=== PATIENT | male | born 1940 | race Caucasian/White ===

== ENCOUNTER 2020-05-09 15:36 | Emergency (ER) | payer MEDICARE, BC, SELFPAY ==
[2020-05-09] VITALS (7 sets, daily range): BP systolic 151–182; BP diastolic 80–131; PULSE 59–82; RESP 14–17; TEMP 36.6; O2SAT 95–99
[2020-05-09 17:25] LABS: Basophils % 0.2 %; Eosinophils % 0.2 %; Hematocrit 43.6 % (42.0-52.0); Hemoglobin 14.6 g/dL (11.7-16.6); Lymphocytes # 1.3 10^3/uL (0.8-4.8); Lymphocytes % 9.1 %; Mean Corpuscular HGB Conc 33.5 g/dL (30.0-36.0); Mean Corpuscular Hemoglobin 32.7 pg (28.0-34.0); Mean Corpuscular Volume 97.5 fL (80-94); Mean Platelet Volume 10.7 fL (7.4-10.4); Monocytes # 0.8 10^3/uL (0.2-0.9); Monocytes % 5.8 %; Nucleated Red Blood Cells % 0 %; Platelet Count 161 10^3/cmm (130-400); Red Blood Count 4.47 10^6/uL (4.1-5.3); Red Cell Distribution Width 12.9 % (12.1-15.1); White Blood Count 14.1 10^3/uL (4.0-10.0)
[2020-05-09 17:42] LABS: Alanine Aminotransferase 15 U/L (0-41); Albumin Level 4.2 g/dL (3.5-5.2); Alkaline Phosphatase 83 IU/L (40-130); Anion Gap 17.9 (5-19); Aspartate Amino Transferase 17 U/L (0-40); Blood Urea Nitrogen 24 mg/dL (8-23); Calcium 9.7 mg/dL (8.5-10.5); Carbon Dioxide 23 mmol/L (22-29); Chloride 106 mmol/L (98-107); Globulin 2.8 g/dL (1.3-4.6); Glucose 122 mg/dL (65-115); Lipase 16 U/L (13-60); Osmolality Calculated 301 mOsm/kg (285-295); Potassium 3.9 mmol/L (3.5-5.1); Sodium 143 mmol/L (136-145); Total Bilirubin 0.7 mg/dL (0.15-1.2)
--- NOTE | 2020-05-09 19:04 | ED_ITS ---
HPI - Abdominal Pain General: Chief Complaint: Abdominal Pain Stated Complaint: ABD PAIN, N/V Time Seen by Provider: 05/09/20 18:58 Source: patient Mode of arrival: ambulatory Limitations: no limitations History of Present Illness: HPI narrative: Paco is a 79-year-old male who states he has been having abdominal pain over the last 2 to 3 days. He states it feels like a bandlike sharp pain across his abdomen is worsened today. He states is a 7 out of 10. States he feels bloated as well. He has had some nausea but denies any vomiting or diarrhea or constipation. He denies any fevers. Denies any worsening or improving factors. MD elicited complaint: abdominal pain Pertinent past history: none Associated Symptoms: Denies chills, dysuria and fever(s) Review of Systems Const: Denies: fever(s), chills, body aches or change in appetite Eyes: Denies: blurry vision or eye discomfort ENMT: Denies: throat pain or dental pain Card: Denies: chest pain Resp: Denies: dyspnea GI: Reports: abdominal pain : Denies: dysuria Musc: Denies: neck pain or back pain Skin/Breast: Denies: rash Neuro: Denies: headache(s) Psych: Denies: depression Varinder/Lymph: Denies: easy bruising All/Imm: Denies: urticaria Physical Exam Const: COMMON NORMALS: no acute distress, patient oriented x3 and healthy appearing HENMT: COMMON NORMALS: normocephalic and atraumatic HEAD & SCALP: normocephalic and atraumatic Eye: COMMON NORMALS: Equal, round and reactive pupils present and EOMs intact bilaterally PUPIL: Yes Equal, round and reactive pupils present Neck/C-Spine: COMMON NORMALS: full ROM and supple Chest: COMMONS NORMALS: normal inspection of the chest and normal palpation of entire chest wall Resp: COMMON NORMALS: normal respiratory effort, No retractions, No use of accessory muscles and clear to auscultation bilaterally AUSCULTATION: clear to auscultation bilaterally Cardio: COMMON NORMALS: regular rate, regular rhythm and No murmurs present (Cardio) RATE: regular rate RHYTHM: regular rhythm GI: COMMON NORMALS: Normal to inspection, nondistended, normoactive bowel lester nds present, Soft to palpation and no masses PALPATION: Yes Soft to palpation OTHER: diffuse tenderness Extremity: COMMON NORMALS: normal to inspection and full ROM Neuro: COMMON NORMALS: patient oriented x3, moves all extremities and no focal motor deficits Psych: COMMON NORMALS: mental status grossly normal, Normal thought process present and cooperative THOUGHT PROCESS: Normal thought process present Skin: COMMON NORMALS: no rashes or lesions noted and no wounds GENERAL SKIN EXAM: no rashes or lesions noted Course Vital Signs: Vital signs: Vital Signs Temperature 97.8 F 05/09/20 22:22 Pulse Rate 82 05/09/20 22:22 Respiratory Rate 17 05/09/20 22:22 Blood Pressure 157/82 05/09/20 22:22 Pulse Oximetry 95 05/09/20 22:22 MDM - Abdominal Pain MDM Narrative: Medical decision making narrative: Patient presents here with abdominal pain. Patient's CT scan here shows no acute findings and blood work is normal. Exam at discharge is benign. He is stable for discharge and return if worsening. Lab Data: Labs: Lab Results 05/09/20 05/09/20 05/09/20 Range/Units 17:11 17:11 20:42 WBC 14.1 H (4.0-10.0) 10^3/ uL RBC 4.47 (4.1-5.3) 10^6/u L Hgb 14.6 (11.7-16.6) g/dL Hct 43.6 (42.0-52.0) % MCV 97.5 H (80-94) fL MCH 32.7 (28.0-34.0) pg MCHC 33.5 (30.0-36.0) g/dL RDW 12.9 (12.1-15.1) % Plt Count 161 (130-400) 10^3/c mm MPV 10.7 H (7.4-10.4) fL Neut % (Auto) 84.0 % Lymph % (Auto) 9.1 % Jennings % (Auto) 5.8 % Eos % (Auto) 0.2 % Baso % (Auto) 0.2 % Neut # (Auto) 11.80 H (1.8-7.7) 10^3/u L Lymph # (Auto) 1.3 (0.8-4.8) 10^3/u L Jennings # (Auto) 0.8 (0.2-0.9) 10^3/u L Eos # (Auto) 0.0 (0.0-0.8) 10^3/u L Baso # (Auto) 0.0 (0.0-0.1) 10^3/u L Nucleated RBC % (a uto) 0 % Nucleated RBCs # 0.0 /100WBC Sodium 143 (136-145) mmol/L Potassium 3.9 (3.5-5.1) mmol/L Chloride 106 (98-107) mmol/L Carbon Dioxide 23 (22-29) mmol/L Anion Gap 17.9 (5-19) BUN 24 H (8-23) mg/dL Creatinine 1.2 (0.7-1.2) mg/dL GFR Calculation Not Reportable Glucose 122 H (65-115) mg/dL Calculated Osmolal ity 301 H (285-295) mOsm/k g Calcium 9.7 (8.5-10.5) mg/dL Total Bilirubin 0.7 (0.15-1.2) mg/dL AST 17 (0-40) U/L ALT 15 (0-41) U/L Alkaline Phosphata se 83 (40-130) IU/L Total Protein 7.0 (6.6-8.7) g/dL Albumin 4.2 (3.5-5.2) g/dL Globulin 2.8 (1.3-4.6) g/dL Lipase 16 (13-60) U/L Urine Color Yellow (Yellow) Urine Appearance Clear (CLEAR) Urine pH 8 H (5-7) Ur Specific Gravit y 1.015 (1.005-1.030) Urine Protein Neg (Negative) Urine Glucose (UA) Norm (Normal) Urine Ketones Negative (Negative) Urine Blood Neg (Negative) Urine Nitrate Negative (Negative) Urine Bilirubin Neg (Negative) Prot Sulfosalicyli c Acd Negative (Negative) Urine Urobilinogen Norm (Negative) mg/dL Ur Leukocyte Odalis ase Negative (Negative) Imaging Data ^: CT Abd/Pel: Radiologist's impression: [address] [address] [address] Scan Report Signed Patient: Paco Sauceda Unit #: [id number] : 1940 Age/Sex: 79 / M ADM Date: 05/09/20 Loc: ER Room/Bed: Attending Dr: Ordering Provider/Ordering MD: Austin Villanueva MD Date of Service: 05/09/20 Procedure(s): CT abdomen pelvis w con* [id number] Accession Number(s): [id number] Report Number: [id number] PROCEDURE INFORMATION: Exam: CT Abdomen And Pelvis With Contrast Exam date and time: 05/09/2020 7:09 PM Age: 79 years old Clinical indication: Nausea and vomiting; Abdominal pain; Additional info: Abd pain TECHNIQUE: Imaging protocol: Computed tomography of the abdomen and pelvis with contrast. Total images: 246 Radiation optimization: All CT scans at this facility use at least one of these dose optimization techniques: automated exposure control; mA and/or kV adjustment per patient size (includes targeted exams where dose is matched to clinical indication); or iterative reconstruction. Contrast material: VISI 320; Contrast volume: 95 ml; Contrast route: INTRAVENOUS (IV); COMPARISON: CT Abdomen/Pelvis Renal [id number] 09/05/2014 1:39 PM RADIATION DOSE METRICS: Total DLP (mGy-cm): 1077.75 FINDINGS: Lungs: Limited assessment of the lung bases fails to reveal evidence for active cardiopulmonary process. Liver: Stable tiny simple hepatic cyst measuring under 5 mm medial segment left hepatic lobe. No visible hepatic mass. Gallbladder and bile ducts: Normal. No calcified stones. No ductal dilation. Pancreas: Unremarkable. No ductal dilation. Spleen: Rare calcified splenic granuloma. Small splenule. Spleen otherwise unremarkable. Adrenal glands: Adrenal glands unremarkable. Kidneys and ureters: Small simple cortical cysts and parapelvic renal cysts bilaterally stable since prior study. No follow-up recommended. No hydronephrosis or perinephric fluid. No visible nephrolithiasis or ureterolithiasis. Stomach and bowel: Assessment of the hollow viscus fails to reveal evidence of active or acute pathology. Nonobstructed bowel pattern. No visible acute diverticulitis. No visible adynamic or reactive ileus. Small hiatal hernia. Appendix: The appendix is not visualized. Intraperitoneal space: No visible evidence of mesenteric lymphadenitis or active mesenteritis/panniculitis. No visible pneumoperitoneum. No visible intraperitoneal ascites. Vasculature: Coronary artery disease. The abdominal aorta is nonaneurysmal. Mild arterial sclerotic disease. Lymph nodes: No current visible evidence of active mesenteric or retroperitoneal lymphadenopathy. Urinary bladder: Unremarkable as visualized. Reproductive: Prostate hypertrophy. Bones/joints: No visible active or acute osseous pathology. 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 No visible spondylolysis. No visible osteolytic or osteoblastic destructive process. Soft tissues: Obesity. CT/CT abdomen pelvis w con* [id number] IMPRESSION: Currently no visible evidence for acute abdominal or pelvic pathologic process. Discharge Plan Discharge Patient Disposition: Home Clinical Impression: Abdominal pain Qualifiers: Abdominal location: generalized Qualified Code(s): R10.84 - Generalized abdominal pain Condition: Stable Prescriptions: New dicyclomine 20 mg tablet 20 mg PO TID PRN (Reason: abdominal pain) Qty: 20 RF: 0 No Action Multi-Vitamin Tablet 1 tab PO DAILY@1000 RF: 0 lisinopril 20 mg tablet 20 mg PO DAILY@1000 RF: 0 Aspir-81 81 mg Tablet,Delayed Release (Dr/Ec) 81 mg PO DAILY@1000 RF: 0 simvastatin 20 mg tablet 20 mg PO DAILY@1000 RF: 0 Discharge Orders: Discharge ED (Routine); Ordered 05/09/20 Ordered By: Austin Villanueva Referrals: Elmer Lawson DO [Primary Care Provider] - 1-3 days Discharge Diet: Advance as tolerated Discharge Activity: Resume usual activity Patient Instructions: Abdominal Pain (ED) Coding Level of Care Code ED Windshield Installer for Chg Fwd Exam Comprehensive
--- NOTE | 2020-05-09 19:25 | PC.PHAR ---
PT STATES HE DOESN'T KNOW IF HE TOOK HIS MEDICATION TODAY, BUT HE DID TAKE IT YESTERDAY.
[2020-05-09] MEDS: ondansetron 2 mg/ML SDV 2 mL 4 MG IVP (19:42)
[2020-05-09] MEDS: morphine 4 mg/mL SDV 1 mL IVP ×2 (19:42→22:17)
[2020-05-09] MEDS: iodixanol 320 mg/mL 100mL Btl IV (19:44)
[2020-05-09 20:57] LABS: Add Urine Microscopic? NO
[2020-05-09 21:26] LABS: Urine Appearance Clear (CLEAR); Urine Color Yellow (Yellow)
[2020-05-09 21:27] LABS: Bilirubin Urine Neg (Negative); Blood Urine Neg (Negative); Glucose Urine UA Norm (Normal); Ketones Urine Negative (Negative); Leukocyte Esterase Urine Negative (Negative); Nitrate Urine Negative (Negative); Protein Urine Neg (Negative); Specific Gravity, Urine 1.015 (1.005-1.030); Sulfosalicylic Acid Urine Negative (Negative); Urobilinogen Urine Norm (Negative); pH Urine 8 (5-7)
== END 2020-05-09 22:22 | disposition home or self-care (01) ==
PROVIDERS: Family Medicine; Emergency Provider Emergency Medicine; PCP Electrodiagnostic Medicine
DX: R10.84 Generalized abdominal pain (principal); Z79.82 Long term (current) use of aspirin
CPT/HCPCS: 12345; 36415; 74177; 80053; 81003; 83690; 85025; 96374; 96375; 96376; 99283; J2270; J2405; Q9967

== ENCOUNTER 2020-05-11 13:31 | Inpatient (IN) | payer MEDICARE, BC, SELFPAY ==
[2020-05-11] VITALS (9 sets, daily range): BP systolic 98–155; BP diastolic 46–92; PULSE 62–93; RESP 14–18; TEMP 36.8–36.9; O2SAT 96–100; BMI 30.5
--- NOTE | 2020-05-11 13:50 | W.ED.ABDPA2 ---
Documented by User: DIONE Bernal 05/12/20 07:09 HPI - Abdominal Pain General: Chief Complaint: Abdominal Pain Stated Complaint: NAUSEA/ VOMITING Time Seen by Provider: 05/11/20 13:45 History of Present Illness: HPI narrative: Patient is an 80-year-old male comes to the ED with abdominal pain, nausea and vomiting. Patient was seen here in the ED on Friday, May 09 for same complaint. On May 09 of the labs and CT of the abdomen were all normal showed no acute findings. Since discharged he still having abdominal pain that is located in the left lower quadrant. He rates the pain a 6 out of 10. He had an episode of emesis yesterday and feels nauseous today. Patient says he has not had anything to eat since Friday. He also states he has not had a bowel movement since Friday. Denies any fever, chills, chest pain, shortness of breath or bladder symptoms. Associated Symptoms: Reports nausea; Denies chills, constipation, diarrhea, dysuria, fever(s), hematochezia, hematuria and vomiting Review of Systems Const: Reports: change in appetite (decreased); Denies: fever(s), chills or fatigue Eyes: Denies: change in vision or eye discomfort ENMT: Denies: throat pain, odynophagia, nasal discharge or nasal congestion Card: Denies: chest pain, palpitations, edema, swelling of feet/ankles, dyspnea on exertion or orthopnea Resp: Denies: dyspnea, productive cough or non-productive cough GI: Reports: abdominal pain and nausea; Denies: vomiting, diarrhea, constipation or hematochezia : Denies: flank pain, difficulty urinating, dysuria or hematuria Musc: Denies: neck pain, back pain or extremity swelling Skin/Breast: Denies: rash or new lesions Neuro: Denies: headache(s), numbness in extremities or weakness in extremities Physical Exam Const: COMMON NORMALS: no acute distress, patient oriented x3 and alert GENERAL APPEARANCE: cooperative, comfortable and lethargic (Patient appears very sleepy) ORIENTATION/CONSCIOUSNESS: Yes lethargic (Patient appears very sleepy) HENMT: COMMON NORMALS: normocephalic HEAD & SCALP: normocephalic MOUTH: Normal oral and palatal mucosa present THROAT: posterior oropharynx normal and uvula midline Eye: COMMON NORMALS: Equal, round and reactive pupils present PUPIL: Yes Equal, round and reactive pupils present Neck/C-Spine: COMMON NORMALS: supple GENERAL: Yes normal visual inspection Resp: COMMON NORMALS: normal respiratory effort, No retractions, No use of accessory muscles and clear to auscultation bilaterally AUSCULTATION: clear to auscultation bilaterally Cardio: COMMON NORMALS: regular rate, regular rhythm, S1 normal heart sound present, S2 normal heart sound present, No gallops present (Cardio), No clicks present (Cardio), No murmurs present (Cardio) and Peripheral pulses 2+ throughout RATE: regular rate RHYTHM: regular rhythm HEART SOUNDS: S1 normal heart sound present and S2 normal heart sound present PERIPHERAL PULSES: Peripheral pulses 2+ throughout GI: COMMON NORMALS: Normal to inspection, nondistended, normoactive bowel sounds present, Soft to palpation and no masses PALPATION: Yes Soft to palpation and Yes Tenderness to palpation present (GI) (mild bilateral lower abdominal tenderness) Details: LLQ and RLQ : COMMON NORMALS: Yes no CVA tenderness BLADDER/KIDNEY EXAM: Yes no CVA tenderness Back/Pelvis: COMMON NORMALS: no CVA tenderness Extremity: COMMON NORMALS: normal to inspection and no pedal edema Neuro: COMMON NORMALS: patient oriented x3 SENSORIUM/ORIENTATION: Yes alert and Yes lethargic (Patient appears very sleepy) GAIT: Yes Normal gait present Skin: GENERAL SKIN EXAM: dry skin Course Vital Signs: Vital signs: Vital Signs Temperature 99.9 F H 05/12/20 04:00 Pulse Rate 73 05/12/20 04:00 Respiratory Rate 15 05/12/20 04:00 Blood Pressure 98/58 05/12/20 04:00 Pulse Oximetry 94 05/12/20 04:00 MDM - Abdominal Pain Lab Data: Attestation: I reviewed the patient's lab results. Labs: Lab Results 05/11/20 05/11/20 05/11/20 Range/Units 14:04 14:04 14:04 WBC 22.0 H (4.0-10.0) 10^3/ uL RBC 4.54 (4.1-5.3) 10^6/u L Hgb 14.6 (11.7-16.6) g/dL Hct 44.5 (42.0-52.0) % MCV 98.0 H (80-94) fL MCH 32.2 (28.0-34.0) pg MCHC 32.8 (30.0-36.0) g/dL RDW 13.0 (12.1-15.1) % Plt Count 130 (130-400) 10^3/c mm MPV 10.9 H (7.4-10.4) fL Neut % (Auto) 87.1 % Lymph % (Auto) 5.9 % [place] % (Auto) 6.1 % Eos % (Auto) 0.0 % Baso % (Auto) 0.1 % Neut # (Auto) 19.13 H (1.8-7.7) 10^3/u L Lymph # (Auto) 1.3 (0.8-4.8) 10^3/u L [place] # (Auto) 1.3 H (0.2-0.9) 10^3/u L Eos # (Auto) 0.0 (0.0-0.8) 10^3/u L Baso # (Auto) 0.0 (0.0-0.1) 10^3/u L Nucleated RBC % (a uto) 0 % Nucleated RBCs # 0.0 /100WBC Sodium 134 L (136-145) mmol/L Potassium 4.6 (3.5-5.1) mmol/L Chloride 97 L (98-107) mmol/L Carbon Dioxide 25 (22-29) mmol/L Anion Gap 16.6 (5-19) BUN 23 (8-23) mg/dL Creatinine 1.5 H (0.7-1.2) mg/dL GFR Calculation Not Reportable Glucose 102 (65-115) mg/dL Calculated Osmolal ity 282 L (285-295) mOsm/k g Lactic Acid 1.6 (0.5-2.2) mmol/L Calcium 9.7 (8.5-10.5) mg/dL Total Bilirubin 2.1 H (0.15-1.2) mg/dL AST 18 (0-40) U/L ALT 16 (0-41) U/L Alkaline Phosphata se 72 (40-130) IU/L Total Protein 6.9 (6.6-8.7) g/dL Albumin 3.8 (3.5-5.2) g/dL Globulin 3.1 (1.3-4.6) g/dL Lipase 9 L (13-60) U/L Urine Color (Yellow) Urine Appearance (CLEAR) Urine pH (5-7) Ur Specific Gravit y (1.005-1.030) Urine Protein (Negative) Urine Glucose (UA) (Normal) Urine Ketones (Negative) Urine Blood (Negative) Urine Nitrate (Negative) Urine Bilirubin (Negative) Urine Urobilinogen (Negative) mg/dL Ur Leukocyte Odalis ase (Negative) Urine RBC (0-2) /hpf Urine WBC (0-5) /hpf Ur Squamous Epith Cells (0-5) /hpf Amorphous Sediment Urine Bacteria (NONE) /hpf Hyaline Casts /lpf Urine Mucus /hpf 05/11/20 Range/Units 15:00 WBC (4.0-10.0) 10^3/ uL RBC (4.1-5.3) 10^6/u L Hgb (11.7-16.6) g/dL Hct (42.0-52.0) % MCV (80-94) fL MCH (28.0-34.0) pg MCHC (30.0-36.0) g/dL RDW (12.1-15.1) % Plt Count (130-400) 10^3/c mm MPV (7.4-10.4) fL Neut % (Auto) % Lymph % (Auto) % [place] % (Auto) % Eos % (Auto) % Baso % (Auto) % Neut # (Auto) (1.8-7.7) 10^3/u L Lymph # (Auto) (0.8-4.8) 10^3/u L [place] # (Auto) (0.2-0.9) 10^3/u L Eos # (Auto) (0.0-0.8) 10^3/u L Baso # (Auto) (0.0-0.1) 10^3/u L Nucleated RBC % (a uto) % Nucleated RBCs # /100WBC Sodium (136-145) mmol/L Potassium (3.5-5.1) mmol/L Chloride (98-107) mmol/L Carbon Dioxide (22-29) mmol/L Anion Gap (5-19) BUN (8-23) mg/dL Creatinine (0.7-1.2) mg/dL GFR Calculation Glucose (65-115) mg/dL Calculated Osmolal ity (285-295) mOsm/k g Lactic Acid (0.5-2.2) mmol/L Calcium (8.5-10.5) mg/dL Total Bilirubin (0.15-1.2) mg/dL AST (0-40) U/L ALT (0-41) U/L Alkaline Phosphata se (40-130) IU/L Total Protein (6.6-8.7) g/dL Albumin (3.5-5.2) g/dL Globulin (1.3-4.6) g/dL Lipase (13-60) U/L Urine Color Yellow (Yellow) Urine Appearance Clear (CLEAR) Urine pH 6 (5-7) Ur Specific Gravit y 1.015 (1.005-1.030) Urine Protein 1+ H (Negative) Urine Glucose (UA) Norm (Normal) Urine Ketones Negative (Negative) Urine Blood Neg (Negative) Urine Nitrate Negative (Negative) Urine Bilirubin 1+ H (Negative) Urine Urobilinogen 8 H (Negative) mg/dL Ur Leukocyte Odalis ase Negative (Negative) Urine RBC 0-4 H (0-2) /hpf Urine WBC 0-4 H (0-5) /hpf Ur Squamous Epith Cells 0-4 H (0-5) /hpf Amorphous Sediment Not Reportable Urine Bacteria Trace (NONE) /hpf Hyaline Casts 0-4 H /lpf Urine Mucus Trace /hpf Imaging Data ^: KUB: Attestation: I personally reviewed and interpreted this imaging study as follows: Radiologist's impression: [address] [address] XRay Report Signed Patient: Paco Sauceda Unit #: [id number] : 1940 Age/Sex: 80 / M ADM Date: 05/11/20 Loc: ER Room/Bed: Attending Dr: Ordering Provider/Ordering MD: Nestor Farmer Date of Service: 05/11/20 Procedure(s): XR KUB portable 14499 Accession Number(s): [id number] Report Number: [id number] WS: [id number] KUB, portable supine KUB, 05/11/2020 Clinical Data: abdominal pain Comparison: None. Findings: No abnormal intraabdominal masses or calcifications are seen. There is no dilatated small bowel or evidence of obstruction. There is air in the small bowel and the colon. There is a large amount of fecal material throughout the colon. XR/XR KUB portable [id number] Impression: Generalized ileus. Dictated By: Janelle Hurt MD Signed By: Janelle Hurt MD Signed Date/Time: 05/11/201441 DD/ 144 Discharge Plan Discharge Patient Disposition: Admitted As Inpatient Admit Provider: Donny Vogel Clinical Impression: Acalculous cholecystitis Condition: Stable Sign Out Sign Out Data: Patient Sign Out occurred on 05/11/20 at 17:06. Patient's care was discussed, and care was transferred from DIONE Bernal to Charles Gonzalez MD, [facility] [place]. Sign Out Comment: US gallbladder pending. WBC 22, t quan 2.4 and Cr 1.5. Pt's pain and nausea is controlled. JRP Last updated by Nestor Farmer PA at 05/11/20 17:02 Coding Level of Care Code ED Cyber Threat Analyst for Chg Fwd Exam Comprehensive Documented by User: Charles Gonzalez MD, [facility] [place] 05/11/20 21:14 HPI - Abdominal Pain General: Chief Complaint: Abdominal Pain Stated Complaint: NAUSEA/ VOMITING Time Seen by Provider: 05/11/20 13:45 Course Vital Signs: Vital signs: Vital Signs Temperature 99.9 F H 05/12/20 04:00 Pulse Rate 73 05/12/20 04:00 Respiratory Rate 15 05/12/20 04:00 Blood Pressure 98/58 05/12/20 04:00 Pulse Oximetry 94 05/12/20 04:00 MDM - Abdominal Pain MDM Narrative: Medical decision making narrative: Kindly evaluate the midlevel providers note for a complete history and physical examination. I also evaluated this patient and agree with his findings. Essentially this is an 80-year-old male and this is a second visit to the emergency department for the same thing in the last 3 days. He was seen for abdominal pain 2 days ago and discharged home, however his pain has been gradually worsening with associated vomiting. Pain is worse on eating and he is unable to keep anything down. On evaluation in the emergency department he has a significant change in his white cell count that went up from about 14,000-22,000 in 2 days. He also has elevated bilirubin and CT scan as well as gallbladder ultrasound are suggestive of acalculus cholecystitis. Common bile duct not dilated and no stones seen. He is admitted under the service of Dr. Vogel, surgeon for cholecystectomy in the morning. I spoke with the surgeon and discussed with the patient. The patient voiced understanding and is in agreement with the plan. Medical Records: Attestation: I reviewed the patient's medical records. Lab Data: Attestation: I reviewed the patient's lab results. Labs: Lab Results 05/11/20 05/11/20 05/11/20 Range/Units 14:04 14:04 14:04 WBC 22.0 H (4.0-10.0) 10^3/ uL RBC 4.54 (4.1-5.3) 10^6/u L Hgb 14.6 (11.7-16.6) g/dL Hct 44.5 (42.0-52.0) % MCV 98.0 H (80-94) fL MCH 32.2 (28.0-34.0) pg MCHC 32.8 (30.0-36.0) g/dL RDW 13.0 (12.1-15.1) % Plt Count 130 (130-400) 10^3/c mm MPV 10.9 H (7.4-10.4) fL Neut % (Auto) 87.1 % Lymph % (Auto) 5.9 % [place] % (Auto) 6.1 % Eos % (Auto) 0.0 % Baso % (Auto) 0.1 % Neut # (Auto) 19.13 H (1.8-7.7) 10^3/u L Lymph # (Auto) 1.3 (0.8-4.8) 10^3/u L [place] # (Auto) 1.3 H (0.2-0.9) 10^3/u L Eos # (Auto) 0.0 (0.0-0.8) 10^3/u L Baso # (Auto) 0.0 (0.0-0.1) 10^3/u L Nucleated RBC % (a uto) 0 % Nucleated RBCs # 0.0 /100WBC Sodium 134 L (136-145) mmol/L Potassium 4.6 (3.5-5.1) mmol/L Chloride 97 L (98-107) mmol/L Carbon Dioxide 25 (22-29) mmol/L Anion Gap 16.6 (5-19) BUN 23 (8-23) mg/dL Creatinine 1.5 H (0.7-1.2) mg/dL GFR Calculation Not Reportable Glucose 102 (65-115) mg/dL Calculated Osmolal ity 282 L (285-295) mOsm/k g Lactic Acid 1.6 (0.5-2.2) mmol/L Calcium 9.7 (8.5-10.5) mg/dL Total Bilirubin 2.1 H (0.15-1.2) mg/dL AST 18 (0-40) U/L ALT 16 (0-41) U/L Alkaline Phosphata se 72 (40-130) IU/L Total Protein 6.9 (6.6-8.7) g/dL Albumin 3.8 (3.5-5.2) g/dL Globulin 3.1 (1.3-4.6) g/dL Lipase 9 L (13-60) U/L Urine Color (Yellow) Urine Appearance (CLEAR) Urine pH (5-7) Ur Specific Gravit y (1.005-1.030) Urine Protein (Negative) Urine Glucose (UA) (Normal) Urine Ketones (Negative) Urine Blood (Negative) Urine Nitrate (Negative) Urine Bilirubin (Negative) Urine Urobilinogen (Negative) mg/dL Ur Leukocyte Odalis ase (Negative) Urine RBC (0-2) /hpf Urine WBC (0-5) /hpf Ur Squamous Epith Cells (0-5) /hpf Amorphous Sediment Urine Bacteria (NONE) /hpf Hyaline Casts /lpf Urine Mucus /hpf 05/11/20 Range/Units 15:00 WBC (4.0-10.0) 10^3/ uL RBC (4.1-5.3) 10^6/u L Hgb (11.7-16.6) g/dL Hct (42.0-52.0) % MCV (80-94) fL MCH (28.0-34.0) pg MCHC (30.0-36.0) g/dL RDW (12.1-15.1) % Plt Count (130-400) 10^3/c mm MPV (7.4-10.4) fL Neut % (Auto) % Lymph % (Auto) % [place] % (Auto) % Eos % (Auto) % Baso % (Auto) % Neut # (Auto) (1.8-7.7) 10^3/u L Lymph # (Auto) (0.8-4.8) 10^3/u L [place] # (Auto) (0.2-0.9) 10^3/u L Eos # (Auto) (0.0-0.8) 10^3/u L Baso # (Auto) (0.0-0.1) 10^3/u L Nucleated RBC % (a uto) % Nucleated RBCs # /100WBC Sodium (136-145) mmol/L Potassium (3.5-5.1) mmol/L Chloride (98-107) mmol/L Carbon Dioxide (22-29) mmol/L Anion Gap (5-19) BUN (8-23) mg/dL Creatinine (0.7-1.2) mg/dL GFR Calculation Glucose (65-115) mg/dL Calculated Osmolal ity (285-295) mOsm/k g Lactic Acid (0.5-2.2) mmol/L Calcium (8.5-10.5) mg/dL Total Bilirubin (0.15-1.2) mg/dL AST (0-40) U/L ALT (0-41) U/L Alkaline Phosphata se (40-130) IU/L Total Protein (6.6-8.7) g/dL Albumin (3.5-5.2) g/dL Globulin (1.3-4.6) g/dL Lipase (13-60) U/L Urine Color Yellow (Yellow) Urine Appearance Clear (CLEAR) Urine pH 6 (5-7) Ur Specific Gravit y 1.015 (1.005-1.030) Urine Protein 1+ H (Negative) Urine Glucose (UA) Norm (Normal) Urine Ketones Negative (Negative) Urine Blood Neg (Negative) Urine Nitrate Negative (Negative) Urine Bilirubin 1+ H (Negative) Urine Urobilinogen 8 H (Negative) mg/dL Ur Leukocyte Odalis ase Negative (Negative) Urine RBC 0-4 H (0-2) /hpf Urine WBC 0-4 H (0-5) /hpf Ur Squamous Epith Cells 0-4 H (0-5) /hpf Amorphous Sediment Not Reportable Urine Bacteria Trace (NONE) /hpf Hyaline Casts 0-4 H /lpf Urine Mucus Trace /hpf Imaging Data ^: CT Abd/Pel: Attestation: I personally reviewed and interpreted this imaging study as follows: Radiologist's impression: [place] [address] CT Scan Report Signed Patient: Paco Sauceda #: [id number] : 1940cct#:[id number] Age/Sex: 80 / MADM Date: 05/11/20 Loc: ERRoom/Bed: Attending Dr: Ordering Provider/Ordering MD: Nestor Farmer Date of Service: 05/11/20 Procedure(s): CT abdomen pelvis w con* [id number] Accession Number(s): [id number] Report Number: [id number] WS: [id number] CT ABDOMEN AND PELVIS WITH CONTRAST HISTORY: abdominal pain, n/v TECHNIQUE: Imaging performed of the abdomen and pelvis with IV contrast. Single phase imaging of the abdomen. Coronal and sagittal reformats are submitted. All CT scans at [facility] use at least one of these dose optimization techniques: automated exposure control; mA and/or kV adjustment per patient size (includes targeted exams where dose is matched to clinical indication); or iterative reconstruction. IV CONTRAST: Omnipaque 300; 95 mL IV. Oral contrast: No DLP: 970.61 mGy.cm COMPARISON: 05/09/2020 Lower thorax: Chronic interstitial fibrotic changes at the lung bases. Area of pleural thickening and atelectasis at the RIGHT lung base. Heart is normal size. No hiatal hernia. Liver/biliary system: Normal size liver. 2 small to characterize hypodensity in the RIGHT lobe. No bile duct dilatation. Gallbladder: Gallbladder is mildly hydropic. There is a small amount of inflammation adjacent to the gallbladder which was not present on the prior study. The inflammation extends to involve the duodenal C-loop and also inferiorly towards the hepatic flexure. No stones are identified. Pancreas: Normal. Spleen: Normal spleen with granulomata. Adrenal glands: Normal. Right kidney: Normal size kidney with a few hypodensities which are too small to characterize. No renal obstruction. No solid mass. Left kidney: Mild perinephric stranding. Extrarenal pelvis with no hydronephrosis. LEFT ureter is normal size. Aorta: Mild atherosclerosis with no aneurysm. Lymphadenopathy: None. Free fluid: None. GI tract: No GI tract obstruction. There is significant fecal retention in the RIGHT colon. The appendix is not visualized. Abdominal wall: Unremarkable abdominal wall. No hernia. Pelvis: Normal. 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 CT/CT abdomen pelvis w con* [id number] IMPRESSION: 1. Interval development of mild acute inflammatory changes surrounding the gallbladder with extension to the adjacent duodenum and hepatic flexure. No stones identified within the gallbladder. CT findings are suspicious for cholecystitis. Consider ultrasound evaluation to evaluate for cholelithiasis. 2. No bile duct dilatation. 3. No abscess. Dictated By:Leeann Conti DO Signed By:Leeann Conti DOSigned Date/Time:05/11/20 1621 DD/ 1614 US: Attestation: I personally reviewed and interpreted this imaging study as follows: Radiologist's impression: [address] [address] Ultrasound Report Signed Patient: Paco Sauceda #: [id number] : 1Acct#:[id number] Age/Sex: 80 / MADM Date: 05/11/20 Loc: ERRoom/Bed: Attending Dr: Ordering Provider/Ordering MD: Nestor Farmer Date of Service: 05/11/20 Procedure(s): US gall bladder 21711 Accession Number(s): [id number] Report Number: [id number] PROCEDURE INFORMATION: Exam: US Abdomen, Limited; Right Upper Quadrant Exam date and time: 05/11/2020 4:46 PM Age: 80 years old Clinical indication: Abdominal pain; Additional info: Abdom pain- TECHNIQUE: Imaging protocol: US abdomen. Real time ultrasound with image documentation. Limited exam focused on the right upper quadrant. COMPARISON: CR XR KUB portable [id number] 05/11/2020 2:29 PM FINDINGS: Liver: Normal. No masses. Gallbladder: Mild layering echogenic sludge in the gallbladder lumen. No focal echogenic gallstones. Mild thickening of the gallbladder wall. No pericholecystic fluid. Common bile duct: Common bile duct is unremarkable, measuring 4 mm diameter. No intrahepatic bile duct dilation. Pancreas: Visualized pancreas is unremarkable. Right kidney: Severe right renal cortical atrophy. No hydronephrosis. Portal venous: Portal vein is patent with normal direction of blood flow. US/US gall bladder [id number] IMPRESSION: 1. Mild thickening of the gallbladder wall and biliary sludge may represent cholecystitis. 2. Negative for common bile duct obstruction. Dictated By:Lopez Lance Signed By:Valentin Lance Date/Time:05/11/201716 DD/ 15 Discharge Plan Discharge Patient Disposition: Admitted As Inpatient Admit Provider: Donny Vogel Clinical Impression: Acalculous cholecystitis Condition: Stable Sign Out Sign Out Data: Patient Sign Out occurred on 05/11/20 at 17:06. Patient's care was discussed, and care was transferred from DIONE Bernal to Charles Gonzalez MD, [facility] [place]. Sign Out Comment: US gallbladder pending. WBC 22, t quan 2.4 and Cr 1.5. Pt's pain and nausea is controlled. JRP Last updated by Nestor Farmer PA at 05/11/20 17:02 Coding Level of Care Code ED Cyber Threat Analyst for Chg Fwd Exam Comprehensive
[2020-05-11] MEDS: ondansetron 2 mg/ML SDV 2 mL 4 MG IVP (14:11)
[2020-05-11] MEDS: sodium chloride 0.9% 500 ML 999 ML IV (14:11)
[2020-05-11 14:22] LABS: Basophils % 0.1 %; Hematocrit 44.5 % (42.0-52.0); Hemoglobin 14.6 g/dL (11.7-16.6); Lymphocytes # 1.3 10^3/uL (0.8-4.8); Lymphocytes % 5.9 %; Mean Corpuscular HGB Conc 32.8 g/dL (30.0-36.0); Mean Corpuscular Hemoglobin 32.2 pg (28.0-34.0); Mean Platelet Volume 10.9 fL (7.4-10.4); Monocytes # 1.3 10^3/uL (0.2-0.9); Monocytes % 6.1 %; Neutrophils # 19.13 10^3/uL (1.8-7.7); Neutrophils % 87.1 %; Nucleated Red Blood Cells % 0 %; Platelet Count 130 10^3/cmm (130-400); Red Blood Count 4.54 10^6/uL (4.1-5.3)
--- NOTE | 2020-05-11 14:30 | XR_ITS ---
WS: [id number] KUB, portable supine KUB, 05/11/2020 Clinical Data: abdominal pain Comparison: None. Findings: No abnormal intraabdominal masses or calcifications are seen. There is no dilatated small bowel or ev idence of obstruction. There is air in the small bowel and the colon. There is a large amount of fecal material throughout t he colon. XR/XR KUB portable [id number] Impression: Generalized ileus.
[2020-05-11 14:47] LABS: Alanine Aminotransferase 16 U/L (0-41); Albumin Level 3.8 g/dL (3.5-5.2); Alkaline Phosphatase 72 IU/L (40-130); Anion Gap 16.6 (5-19); Aspartate Amino Transferase 18 U/L (0-40); Blood Urea Nitrogen 23 mg/dL (8-23); Calcium 9.7 mg/dL (8.5-10.5); Carbon Dioxide 25 mmol/L (22-29); Chloride 97 mmol/L (98-107); Globulin 3.1 g/dL (1.3-4.6); Glucose 102 mg/dL (65-115); Lipase 9 U/L (13-60); Osmolality Calculated 282 mOsm/kg (285-295); Potassium 4.6 mmol/L (3.5-5.1); Sodium 134 mmol/L (136-145); Total Bilirubin 2.1 mg/dL (0.15-1.2); Total Protein 6.9 g/dL (6.6-8.7)
--- NOTE | 2020-05-11 14:49 | CT_ITS ---
WS: [id number] CT ABDOMEN AND PELVIS WITH CONTRAST HISTORY: abdominal pain, n/v TECHNIQUE: Imaging performed of the abdomen and pelvis with IV contrast. Single phase imaging of the abdomen. Coronal and sagittal reformats are submitted. All CT scans at [facility] use at least one of these dose optimization techniques: automated exposure control; mA and/or kV adjustment per patient size (includes targeted exams where dose is matched to clinical indication); or iterativ e reconstruction. IV CONTRAST: Omnipaque 300; 95 mL IV. Oral contrast: No DLP: 970.61 mGy.cm COMPARISON: 05/09/2020 Lower thorax: Chronic interstitial fibrotic changes at the lung bases. Area of pleural thickening and atelectasis at the RIGHT lung base. Heart is normal size. No hiatal hernia. Liver/biliary system: Normal size liver. 2 small to characterize hypodensity in the RIGHT lobe. No bi le duct dilatation. Gallbladder: Gallbladder is mildly hydropic. There is a small amount of inflammation adjacent to the gallbladder which was not present on the prior study. The inflammation extends to involve the duodena l C-loop and also inferiorly towards the hepatic flexure. No stones are identified. Pancreas: Normal. Spleen: Normal spleen with granulomata. Adrenal glands: Normal. Right kidney: Normal size kidney with a few hypodensities which are too small to characterize. No sandra al obstruction. No solid mass. Left kidney: Mild perinephric stranding. Extrarenal pelvis with no hydronephrosis. LEFT ureter is nor mal size. Aorta: Mild atherosclerosis with no aneurysm. Lymphadenopathy: None. Free fluid: None. GI tract: No GI tract obstruction. There is significant fecal retention in the RIGHT colon. The appen massimo is not visualized. Abdominal wall: Unremarkable abdominal wall. No hernia. Pelvis: Normal. 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 CT/CT abdomen pelvis w con* [id number] IMPRESSION: 1. Interval development of mild acute inflammatory changes surrounding the gal lbladder with extension to the adjacent duodenum and hepatic flexure. No stones identified within the gallbladder. CT findings are suspicious for cholecystiti s. Consider ultrasound evaluation to evaluate for cholelithiasis. 2. No bile duct dilatation. 3. No abscess.
[2020-05-11 15:16] LABS: Lactic Sepsis W/Reflex 1.6 mmol/L (0.5-2.2)
[2020-05-11] MEDS: iodixanol 320 mg/mL 100mL Btl IV (15:42)
[2020-05-11 15:55] LABS: Blood Urine Neg (Negative); Glucose Urine UA Norm (Normal); Ketones Urine Negative (Negative); Nitrate Urine Negative (Negative); Protein Urine 1+ (Negative); Specific Gravity, Urine 1.015 (1.005-1.030); Urine Appearance Clear (CLEAR); Urine Color Yellow (Yellow); pH Urine 6 (5-7)
[2020-05-11 15:56] LABS: Bacteria Urine TRACE /hpf; Bilirubin Urine 1+ (Negative); Hyaline Casts Urine 0-4 /lpf; Leukocyte Esterase Urine Negative (Negative); Mucus Urine TRACE /hpf; RBC Urine 0-4 /hpf (0-2); Squamous Epithelial Cell Urine 0-4 /hpf (0-5); Urobilinogen Urine 8 mg/dL (Negative); WBC Urine 0-4 /hpf (0-5)
--- NOTE | 2020-05-11 16:27 | USR_ITS ---
PROCEDURE INFORMATION: Exam: US Abdomen, Limited; Right Upper Quadrant Exam date and time: 05/11/2020 4:46 PM Age: 80 years old Clinical indication: Abdominal pain; Additional info: Abdom pain- TECHNIQUE: Imaging protocol: US abdomen. Real time ultrasound with image documentation. Limited exam focused on the right upper quadrant. COMPARISON: CR XR KUB portable [id number] 05/11/2020 2:29 PM FINDINGS: Liver: Normal. No masses. Gallbladder: Mild layering echogenic sludge in the gallbladder lumen. No focal echogenic gallstones. Mild thickening of the gallbladder wall. No pericholecystic fluid. Common bile duct: Common bile duct is unremarkable, measuring 4 mm diameter. No intrahepatic bile duct dilation. Pancreas: Visualized pancreas is unremarkable. Right kidney: Severe right renal cortical atrophy. No hydronephrosis. Portal venous: Portal vein is patent with normal direction of blood flow. US/US gall bladder [id number] IMPRESSION: 1. Mild thickening of the gallbladder wall and biliary sludge may represent cholecystitis. 2. Negative for common bile duct obstruction.
[2020-05-11] MEDS: piperacillin-tazobactam 3.375 GM in sodium chloride 0.9% (plus) 50 ML IV ×2 (17:48→22:37)
[2020-05-11 18:56] LABS: SARS Covid-2 Antigen Negative (Negative)
[2020-05-11] MEDS: morphine 4 mg/mL SDV 1 mL IVP (21:07)
[2020-05-12] VITALS (17 sets, daily range): BP systolic 88–125; BP diastolic 49–63; PULSE 58–91; RESP 12–21; TEMP 36.6–37.9; O2SAT 91–100
[2020-05-12 04:48] LABS: Basophils % 0.1 %; Hematocrit 39.7 % (42.0-52.0); Lymphocytes % 5.6 %; Mean Corpuscular HGB Conc 32.7 g/dL (30.0-36.0); Mean Corpuscular Hemoglobin 32.3 pg (28.0-34.0); Mean Corpuscular Volume 98.8 fL (80-94); Monocytes # 1.1 10^3/uL (0.2-0.9); Monocytes % 6.1 %; Neutrophils # 15.93 10^3/uL (1.8-7.7); Neutrophils % 86.9 %; Nucleated Red Blood Cells % 0 %; Platelet Count 115 10^3/cmm (130-400); Red Blood Count 4.02 10^6/uL (4.1-5.3); White Blood Count 18.3 10^3/uL (4.0-10.0)
[2020-05-12 04:59] LABS: Alanine Aminotransferase 13 U/L (0-41); Albumin Level 3.1 g/dL (3.5-5.2); Alkaline Phosphatase 62 IU/L (40-130); Anion Gap 15.3 (5-19); Aspartate Amino Transferase 15 U/L (0-40); Blood Urea Nitrogen 27 mg/dL (8-23); Calcium 8.7 mg/dL (8.5-10.5); Carbon Dioxide 23 mmol/L (22-29); Chloride 103 mmol/L (98-107); Globulin 2.9 g/dL (1.3-4.6); Glucose 89 mg/dL (65-115); Osmolality Calculated 289 mOsm/kg (285-295); Potassium 4.3 mmol/L (3.5-5.1); Sodium 137 mmol/L (136-145); Total Bilirubin 1.3 mg/dL (0.15-1.2)
[2020-05-12] MEDS: piperacillin-tazobactam 3.375 GM in sodium chloride 0.9% (plus) 50 ML IV ×2 (06:04→22:56)
--- NOTE | 2020-05-12 06:36 | PC.NURSE ---
Pt given opportunity to get out of bed and into a chair. Pt declined and stated he would stay in bed.
[2020-05-12] MEDS: sodium chloride 0.9% 1,000 ML 100 ML IV ×2 (08:14→18:24)
[2020-05-12] MEDS: sodium chloride 0.9% 1,000 ML 30 ML IV (13:34)
--- NOTE | 2020-05-12 13:53 | P.HP_ITS ---
Providers/Chief Complaint Admitting Physician: Donny Vogel MD Primary Care Provider: Elmer Lawson DO Chief Complaint: NAUSEA/ VOMITING History of Present Illness Paco Sauceda is a 80 year old male who presented to the ER on 05/09/2020 with 2 to 3-day history of abdominal pain and some nausea. Patient had a CT abdomen pelvis with and or any acute pathology and he subsequently discharged home on dicyclomine. He presented to the ER again on 05/11/2020 with worsening abdominal pain associated nausea. Patient denies any vomiting fevers, chills, constipation or diarrhea. He states he has been hurting on and off since when his . Denies any significant history of peptic ulcer disease. Patient states that he usually does not have any difficulty eating though he has not eaten for the last 3 4 days Medications/Allergies Home Medications Medication Instructions Recorded Confirmed Last Taken Type aspirin [Aspir-81] 81 mg PO DAILY@1000 05/09/20 05/11/20 05/08/20 History dicyclomine 20 mg PO TID PRN #20 tab 05/09/20 05/11/20 Unknown Rx lisinopril 20 mg PO DAILY@1000 05/09/20 05/11/20 05/08/20 History multivitamin [Multi-Vitamin] 1 tab PO DAILY@1000 05/09/20 05/11/20 05/08/20 History simvastatin 20 mg PO DAILY@1000 05/09/20 05/11/20 05/08/20 History ondansetron HCl 4 mg PO Q6H PRN 05/11/20 05/11/20 Unknown History Allergies Allergy/AdvReac Type Severity Reaction Status Date / Time No Known Allergies Allergy Verified 05/09/20 15:45 PFSH Acute PFSH: Medical History Dyslipidemia HTN (hypertension), benign Surgical History Status post colonoscopy Vitals/I&O/Wt Last Vital Signs Temp 99.1 F 05/12/20 13:35 Pulse 72 05/12/20 13:35 Resp 18 05/12/20 13:35 BP 100/53 05/12/20 13:35 Pulse Ox 98 05/12/20 13:35 02/07/2605/12/20 05/12/20 22:59 06:59 14:59 Intake Total 1300 / 1350 50 / 1350 Output Total 200 / 200 100 / 100 Balance 1300 / 1150 -150 / 1150 -100 / -100 Weight last 48 hrs Weight 195 lb Physical Exam Narrative: EXAM NARRATIVE: HEENT: Normocephalic Eye: Sclera /conjunctiva normal Respiratory and chest: Bilateral clear breath sounds on auscultation Cardiovascular: Normal S1 and S2 heart sounds Abdomen: Soft to palpation, tender right upper quadrant, Oliva sign positive Neurological: Oriented to place person and time Skin: Intact, no lesions appreciated on gross exam Data : 05/12/20 04:26 05/12/20 04:26 A&P Assessment and plan (1) Acalculous cholecystitis: 80-year-old male with right upper quadrant pain, Oliva sign positive, ul trasound showing gallbladder wall thickening and CT scan showing inflammatory changes consistent with cholecystitis. His white count on presentation to the ER yesterday was 22 and is down to 18.3 today. History of bilirubin is down from 2.1 yesterday 0.3 today. Patient was admitted overnight and started on IV Zosyn. Discussed treatment options with the patient Plan for laparoscopic possible open cholecystectomy Procedure, risks, benefits and alternatives have been discussed with the patient who wishes to proceed with surgery. Status: Acute Attestations Medical Necessity Statement*: Acute cholecystitis Coding Level of Care Code Acute Gmat Instructor for [facility] Fw Diagnoses Acalculous cholecystitis K81.9
--- NOTE | 2020-05-12 14:35 | ANES.PREANE2 ---
Pre-Anesthetic Assessment Pre-Anesthetic Assessment: Height/Weight: Height 1.7 m Weight 88.451 kg Temp Pulse Resp BP Pulse Ox 99.1 F 72 18 100/53 98 05/12/20 13:35 05/12/20 13:35 05/12/20 13:35 05/12/20 13:35 05/12/20 13:35 Preop Diagnosis: cholecystitis Proposed Procedure: Operation Date: 05/12/20 13:20 Proposed Procedures p Laparoscopic Cholecystectomy(Not Applicable) - Donny Vogel MD Familial anesthetic complications: None Was Beta Isaiah taken within 24 hours: N/A Social: Social History: No alcohol and No tobacco Exam: Pre-Anes Outpt Exam: alert, oriented x 3, clear to auscultation bilaterally and regular rate & rhythm Airway: Cervical ROM: WNL MP: 3 Additional comments: unable to tell me that status of his teeth CV/HEM: CV/HEM: HTN Metabolic: Metabolic: Hyperlipidemia Anesthetic Plan: ASA status: 2 Anesthesia: General Risk of > 500 ml blood loss (7ml/kg in children): No Meds/Allergies Current Medications: Current Medications Generic Name Dose Route Start Last Admin Trade Name Freq PRN Reason Stop Dose Admin Piperacillin Sod/T azobactam 50 mls @ 12.5 mls /hr 05/11/20 23:00 05/12/20 06:04 Sod 3.375 gm/ So dium Chloride IV 12.5 mls/hr Q8H CECILIA Administration Protocol Sodium Chloride 1,000 mls @ 100 m ls/hr 05/12/20 07:30 05/12/20 08:14 Sodium Chloride 0.9% IV 100 mls/hr .Q10H CECILIA Administration Sodium Chloride 1,000 mls @ 30 ml s/hr 05/12/20 13:30 05/12/20 13:34 Sodium Chloride 0.9% IV 05/13/20 13:29 30 mls/hr .Q24H CECILIA Administration Morphine Sulfate 4 mg 05/11/20 17:42 05/11/20 21:07 Morphine 4 Mg/Ml Sdv 1 Ml IVP 4 mg Q4H PRN Administration SEVERE PAIN PFSH Anesthesia PFSH: Medical History Dyslipidemia HTN (hypertension), benign Surgical History Status post colonoscopy Data Anesthesia CBC & Chem 7: 05/12/20 04:26 05/12/20 04:26 Other Labs: Laboratory Results - last 48 hr 05/11/20 05/11/20 05/11/20 14:04 14:04 14:04 WBC 22.0 H RBC 4.54 Hgb 14.6 Hct 44.5 MCV 98.0 H MCH 32.2 MCHC 32.8 RDW 13.0 Plt Count 130 MPV 10.9 H Neut % (Auto) 87.1 Lymph % (Auto) 5.9 [place] % (Auto) 6.1 Eos % (Auto) 0.0 Baso % (Auto) 0.1 Neut # (Auto) 19.13 H Lymph # (Auto) 1.3 [place] # (Auto) 1.3 H Eos # (Auto) 0.0 Baso # (Auto) 0.0 Nucleated RBC % (auto) 0 Nucleated RBCs # 0.0 Sodium 134 L Potassium 4.6 Chloride 97 L Carbon Dioxide 25 Anion Gap 16.6 BUN 23 Creatinine 1.5 H GFR Calculation Not Reportable Glucose 102 Calculated Osmolality 282 L Lactic Acid 1.6 Calcium 9.7 Total Bilirubin 2.1 H AST 18 ALT 16 Alkaline Phosphatase 72 Total Protein 6.9 Albumin 3.8 Globulin 3.1 Lipase 9 L Urine Color Urine Appearance Urine pH Ur Specific [place] Urine Protein Urine Glucose (UA) Urine Ketones Urine Blood Urine Nitrate Urine Bilirubin Urine Urobilinogen Ur Leukocyte Esterase Urine RBC Urine WBC Ur Squamous Epith Cells Amorphous Sediment Urine Bacteria Hyaline Casts Urine Mucus SARS-CoV-2 Ag (Rapid) 05/11/20 05/11/20 05/12/20 15:00 17:50 04:26 WBC 18.3 H RBC 4.02 L Hgb 13.0 Hct 39.7 L MCV 98.8 H MCH 32.3 MCHC 32.7 RDW 13.0 Plt Count 115 L MPV 11.0 H Neut % (Auto) 86.9 Lymph % (Auto) 5.6 [place] % (Auto) 6.1 Eos % (Auto) 0.0 Baso % (Auto) 0.1 Neut # (Auto) 15.93 H Lymph # (Auto) 1.0 [place] # (Auto) 1.1 H Eos # (Auto) 0.0 Baso # (Auto) 0.0 Nucleated RBC % (auto) 0 Nucleated RBCs # 0.0 Sodium Potassium Chloride Carbon Dioxide Anion Gap BUN Creatinine GFR Calculation Glucose Calculated Osmolality Lactic Acid Calcium Total Bilirubin AST ALT Alkaline Phosphatase Total Protein Albumin Globulin Lipase Urine Color Yellow Urine Appearance Clear Urine pH 6 Ur Specific [place] 1.015 Urine Protein 1+ H Urine Glucose (UA) Norm Urine Ketones Negative Urine Blood Neg Urine Nitrate Negative Urine Bilirubin 1+ H Urine Urobilinogen 8 H Ur Leukocyte Esterase Negative Urine RBC 0-4 H Urine WBC 0-4 H Ur Squamous Epith Cells 0-4 H Amorphous Sediment Not Reportable Urine Bacteria Trace Hyaline Casts 0-4 H Urine Mucus Trace SARS-CoV-2 Ag (Rapid) Negative 05/12/20 04:26 WBC RBC Hgb Hct MCV MCH MCHC RDW Plt Count MPV Neut % (Auto) Lymph % (Auto) [place] % (Auto) Eos % (Auto) Baso % (Auto) Neut # (Auto) Lymph # (Auto) [place] # (Auto) Eos # (Auto) Baso # (Auto) Nucleated RBC % (auto) Nucleated RBCs # Sodium 137 Potassium 4.3 Chloride 103 Carbon Dioxide 23 Anion Gap 15.3 BUN 27 H Creatinine 1.5 H GFR Calculation Not Reportable Glucose 89 Calculated Osmolality 289 Lactic Acid Calcium 8.7 Total Bilirubin 1.3 H AST 15 ALT 13 Alkaline Phosphatase 62 Total Protein 6.0 L Albumin 3.1 L Globulin 2.9 Lipase Urine Color Urine Appearance Urine pH Ur Specific [place] Urine Protein Urine Glucose (UA) Urine Ketones Urine Blood Urine Nitrate Urine Bilirubin Urine Urobilinogen Ur Leukocyte Esterase Urine RBC Urine WBC Ur Squamous Epith Cells Amorphous Sediment Urine Bacteria Hyaline Casts Urine Mucus SARS-CoV-2 Ag (Rapid) Cardiac Studies: No Data to Display
--- NOTE | 2020-05-12 17:00 | P.PCN_ITS ---
PACU note PACU note: VSS, Good respiratory effort, report to RADIATION ENGINEER Post-Anesthesia Exam: awake
--- NOTE | 2020-05-12 17:00 | PM.PACU ---
PACU note PACU note: VSS, Good respiratory effort, report to FLAT HAMMERER Post-Anesthesia Exam: awake
--- NOTE | 2020-05-12 17:28 | PM.OP ---
Operative Report Date of procedure: May 12, 2020 Pre-op Diagnosis: Acute cholecystitis Post-op Diagnosis: Acute gangrenous cholecystitis Procedure Done: Laparoscopic cholecystectomy Specimens removed/disposition: Gallbladder Surgeon: Donny Vogel Anesthesia: General Condition: stable Disposition: PACU Procedure: The patient was taken to the operating room and was intubated under general anesthesia. After the antibiotic had been administered, the abdomen was prepped and draped in a sterile manner. Using a #15 blade, a 1 centimeter infraumbilical curvilinear incision was made and using an open Robinson technique the peritoneal cavity was entered. A 10 millimeter port was placed and 15 millimeters of pneumoperitoneum was created. A 10 millimeter, 30 degrees scope was introduced. Three 5 millimeter ports were placed in the epigastric, midclavicular and the anterior axillary line two fingerbreadths below the costal margin on the right side under the direct visualization. The gallbladder was acutely inflamed with patchy areas of gangrene and distended, gallbladder was decompressed using an aspirating needle. Ratcheted forceps were introduced into the lateral most port and was used to retract the fundus of the gallbladder cephalad and using forceps the infundibulum of the gallbladder was retracted laterally. Using L-hook cautery the peritoneum overlying the Calot's triangle was opened medially and laterally until the cystic duct and the cystic artery were skeletonized. There was significant inflammation in the Calot's triangle which made dissection difficult and suction data reduction technician was used for most of the dissection. Dissection was carried along the body of the gallbladder and after ensuring critical view of safety, 4 clips applied on the cystic duct and 3 clips applied on the cystic artery and cut leaving, 3 clips on the remaining portion of the duct and 2 clips on the remaining portion of the artery. The rest of the gallbladder was dissected off the liver using L-hook cautery. There was no bleeding or bile leaking noted from the gallbladder fossa and the clips appeared to be in place. A 10 flat GRAHAM drain was introduced through the lateralmost port and placed in the subhepatic space. The drain was sutured with 2-0 silk suture. An EndoCatch bag was introduced to remove the gallbladder. All the ports were removed under direct visualization and there was no bleeding noted from the port sites. The fascia of the umbilicus was closed using [id number] 0 Vicryl sutures and the subcutaneous tissue was approximated using 3-0 Vicryl sutures. The skin at all four ports were closed using 4-0 Monocryl and Dermabond. A total of 10 millimeters of 0.5% Marcaine was infiltrated around the port sites. The patient was stable throughout the procedure.
[2020-05-12] MEDS: HYDROcodone-acetaminophen 5-325 mg Tablet 1 TAB PO (18:23)
[2020-05-12 20:31] LABS: Glucose Point of Care 137 mg/dL (70-110)
[2020-05-12] MEDS: sennosides 8.6 mg Tablet 17.2 MG PO (20:34)
[2020-05-12] MEDS: famotidine 20 mg/2 mL INJ IVP (20:34)
[2020-05-13] VITALS (8 sets, daily range): BP systolic 92–109; BP diastolic 52–62; PULSE 54–71; RESP 17–20; TEMP 36.4–36.9; O2SAT 92–97
[2020-05-13] MEDS: sodium chloride 0.9% 1,000 ML 100 ML IV ×3 (03:07→23:52)
[2020-05-13 05:42] LABS: Hematocrit 37.9 % (42.0-52.0); Hemoglobin 12.2 g/dL (11.7-16.6); Lymphocytes # 0.5 10^3/uL (0.8-4.8); Lymphocytes % 4.8 %; Mean Corpuscular HGB Conc 32.2 g/dL (30.0-36.0); Mean Corpuscular Hemoglobin 32.3 pg (28.0-34.0); Mean Corpuscular Volume 100.3 fL (80-94); Mean Platelet Volume 11.6 fL (7.4-10.4); Monocytes # 0.4 10^3/uL (0.2-0.9); Monocytes % 3.5 %; Neutrophils # 9.76 10^3/uL (1.8-7.7); Nucleated Red Blood Cells % 0 %; Platelet Count 119 10^3/cmm (130-400); Red Blood Count 3.78 10^6/uL (4.1-5.3); Red Cell Distribution Width 13.1 % (12.1-15.1); White Blood Count 10.7 10^3/uL (4.0-10.0)
[2020-05-13 06:05] LABS: Alanine Aminotransferase 24 U/L (0-41); Albumin Level 3.1 g/dL (3.5-5.2); Alkaline Phosphatase 95 IU/L (40-130); Anion Gap 14.5 (5-19); Aspartate Amino Transferase 29 U/L (0-40); Blood Urea Nitrogen 39 mg/dL (8-23); Calcium 8.7 mg/dL (8.5-10.5); Carbon Dioxide 22 mmol/L (22-29); Chloride 105 mmol/L (98-107); Glucose 150 mg/dL (65-115); Osmolality Calculated 296 mOsm/kg (285-295); Potassium 4.5 mmol/L (3.5-5.1); Sodium 137 mmol/L (136-145); Total Bilirubin 0.6 mg/dL (0.15-1.2); Total Protein 6.1 g/dL (6.6-8.7)
[2020-05-13] MEDS: piperacillin-tazobactam 3.375 GM in sodium chloride 0.9% (plus) 50 ML IV ×3 (06:16→22:49)
[2020-05-13 06:54] LABS: Glucose Point of Care 134 mg/dL (70-110)
[2020-05-13] MEDS: lisinopril 20 mg Tablet PO (09:19)
[2020-05-13] MEDS: famotidine 20 mg/2 mL INJ IVP ×2 (09:19→21:39)
--- NOTE | 2020-05-13 11:02 | PM.PN ---
Subjective Subjective: Interval history: He feels a lot better today after surgery, denies any nausea vomiting, feels a bit distended. No flatus or BM Vitals/I&O/Wt Last Vital Signs Temp 97.9 F 05/13/20 07:53 Pulse 63 05/13/20 08:20 Resp 17 05/13/20 07:53 BP 105/54 05/13/20 07:53 Pulse Ox 92 05/13/20 08:20 05/12/20 05/13/20 05/13/20 22:59 06:59 14:59 Intake Total 0 / 971.667 921.667 / 971.667 480 / 480 Output Total 70 / 170 300 / 300 Balance -70 / 801.667 921.667 / 801.667 180 / 180 Weight last 48 hrs Weight 195 lb Physical Exam Narrative: EXAM NARRATIVE: [place]: Soft, slightly distended, minimally tender, incision clean dry intact, GRAHAM drain output is serosanguineous Data : 05/13/20 04:44 05/13/20 04:44 A&P Assessment and plan (1) Acalculous cholecystitis: Status post laparoscopic cholecystectomy postop day 1 with postop ileus Overall doing well Continue GRAHAM drain to bulb suction Continue IV Zosyn 1 L normal saline bolus since urine output was marginal last night. Ambulate ad gali. Lovenox for DVT prophylaxis Pepcid for GI prophylaxis Repeat CBC CMP tomorrow Advance to full liquid diet Senna docusate twice daily for bowel regimen, DC senna lax Status: Acute Attestations Medical Necessity Statement*: Status post laparoscopic cholecystectomy requiring 1 more night of inpatient stay due to postop ileus, marginal urine output, elevated creatinine Coding Level of Care Code Acute Package Lift Operator for [facility] Fwd Diagnoses Acalculous cholecystitis K81.9
[2020-05-13 12:05] LABS: Glucose Point of Care 140 mg/dL (70-110)
[2020-05-13] MEDS: sennosides-docusate Tablet 1 TAB PO (18:40)
[2020-05-13] MEDS: sennosides 8.6 mg Tablet 17.2 MG PO (21:39)
[2020-05-14] VITALS (8 sets, daily range): BP systolic 92–129; BP diastolic 54–66; PULSE 54–87; RESP 17–20; TEMP 36.7–37.2; O2SAT 94–98
[2020-05-14 04:55] LABS: Eosinophils % 0.2 %; Hemoglobin 11.1 g/dL (11.7-16.6); Lymphocytes # 1.5 10^3/uL (0.8-4.8); Mean Corpuscular HGB Conc 32.6 g/dL (30.0-36.0); Mean Corpuscular Hemoglobin 32.4 pg (28.0-34.0); Mean Corpuscular Volume 99.1 fL (80-94); Mean Platelet Volume 11.3 fL (7.4-10.4); Monocytes # 0.6 10^3/uL (0.2-0.9); Monocytes % 7.6 %; Neutrophils # 6.17 10^3/uL (1.8-7.7); Neutrophils % 73.4 %; Nucleated Red Blood Cells % 0 %; Platelet Count 113 10^3/cmm (130-400); Red Blood Count 3.43 10^6/uL (4.1-5.3); Red Cell Distribution Width 13.2 % (12.1-15.1); White Blood Count 8.4 10^3/uL (4.0-10.0)
[2020-05-14 05:12] LABS: Alanine Aminotransferase 27 U/L (0-41); Albumin Level 2.5 g/dL (3.5-5.2); Alkaline Phosphatase 49 IU/L (40-130); Anion Gap 10.8 (5-19); Aspartate Amino Transferase 27 U/L (0-40); Blood Urea Nitrogen 28 mg/dL (8-23); Calcium 8.2 mg/dL (8.5-10.5); Carbon Dioxide 20 mmol/L (22-29); Chloride 111 mmol/L (98-107); Globulin 2.6 g/dL (1.3-4.6); Glucose 96 mg/dL (65-115); Osmolality Calculated 291 mOsm/kg (285-295); Potassium 3.8 mmol/L (3.5-5.1); Sodium 138 mmol/L (136-145); Total Bilirubin 0.4 mg/dL (0.15-1.2); Total Protein 5.1 g/dL (6.6-8.7)
[2020-05-14] MEDS: piperacillin-tazobactam 3.375 GM in sodium chloride 0.9% (plus) 50 ML IV ×2 (06:09→18:16)
[2020-05-14] MEDS: lisinopril 20 mg Tablet PO (10:55)
[2020-05-14] MEDS: sennosides-docusate Tablet 1 TAB PO ×2 (10:55→18:16)
[2020-05-14] MEDS: HYDROcodone-acetaminophen 5-325 mg Tablet 1 TAB PO ×2 (10:55→18:23)
[2020-05-14] MEDS: sodium chloride 0.9% 1,000 ML 100 ML IV (10:56)
--- NOTE | 2020-05-14 12:45 | P.PN_ITS ---
Subjective Subjective: Interval history: Date of service: 05/14/2020 Patient complaining of feeling distended, unable to have a bowel movement, had small emesis Vitals/I&O/Wt Last Vital Signs Temp 99.4 F 05/15/20 04:00 Pulse 68 05/15/20 04:00 Resp 18 05/15/20 04:00 BP 99/52 05/15/20 04:00 Pulse Ox 96 05/15/20 04:00 05/14/20 05/15/20 05/15/20 22:59 06:59 14:59 Intake Total 1050 / 2410 400 / 2410 Output Total 55 / 1205 950 / 1205 Balance 995 / 1205 -550 / 1205 Physical Exam Narrative: EXAM NARRATIVE: Abdomen: Soft, minimally tender, distended, GRAHAM drain output is serosanguineous Data : 05/15/20 05:23 05/15/20 05:23 A&P Assessment and plan (1) Acalculous cholecystitis: Status post laparoscopic cholecystectomy postop day 1 with postop ileus Overall doing well Continue GRAHAM drain to bulb suction Continue IV Zosyn Fleets enema today, will keep the patient for 1 more day Ambulate ad gali. Lovenox for DVT prophylaxis Pepcid for GI prophylaxis Repeat CBC CMP tomorrow Advance to full liquid diet Senna docusate twice daily for bowel regimen, DC senna lax Status: Resolved Attestations Medical Necessity Statement*: Status post lap juan with postop ileus Coding Level of Care Code Acute Chimney Supervisor Brick for [facility] Diagnoses Acalculous cholecystitis K81.9
--- NOTE | 2020-05-14 16:05 | DCPLANNER ---
Pg 2 of IM updated and reviewed with Pt and Sister who has come into the room to visit. Copy provided.
[2020-05-14 20:23] LABS: Glucose Point of Care 108 mg/dL (70-110)
[2020-05-14] MEDS: famotidine 20 mg/2 mL INJ IVP (21:13)
[2020-05-15] VITALS: BP 99/52; PULSE 59; RESP 18; TEMP 37.6; O2SAT 96
[2020-05-15] MEDS: piperacillin-tazobactam 3.375 GM in sodium chloride 0.9% (plus) 50 ML IV ×2 (03:28→09:13)
[2020-05-15] MEDS: sodium chloride 0.9% 1,000 ML 100 ML IV (03:30)
[2020-05-15 04:00] VITALS: BP 99/52; PULSE 68; RESP 18; TEMP 37.4; O2SAT 96
[2020-05-15 05:44] LABS: Basophils % 0.1 %; Eosinophils # 0.1 10^3/uL (0.0-0.8); Eosinophils % 0.5 %; Hematocrit 34.1 % (42.0-52.0); Hemoglobin 11.2 g/dL (11.7-16.6); Lymphocytes # 1.4 10^3/uL (0.8-4.8); Lymphocytes % 15.5 %; Mean Corpuscular HGB Conc 32.8 g/dL (30.0-36.0); Mean Corpuscular Hemoglobin 32.4 pg (28.0-34.0); Mean Corpuscular Volume 98.6 fL (80-94); Monocytes # 0.8 10^3/uL (0.2-0.9); Monocytes % 8.8 %; Neutrophils # 6.73 10^3/uL (1.8-7.7); Neutrophils % 73.9 %; Nucleated Red Blood Cells % 0 %; Platelet Count 141 10^3/cmm (130-400); Red Blood Count 3.46 10^6/uL (4.1-5.3); Red Cell Distribution Width 13.1 % (12.1-15.1); White Blood Count 9.1 10^3/uL (4.0-10.0)
[2020-05-15 06:12] LABS: Alanine Aminotransferase 21 U/L (0-41); Albumin Level 2.5 g/dL (3.5-5.2); Alkaline Phosphatase 47 IU/L (40-130); Anion Gap 11.8 (5-19); Aspartate Amino Transferase 15 U/L (0-40); Blood Urea Nitrogen 30 mg/dL (8-23); Calcium 8.1 mg/dL (8.5-10.5); Carbon Dioxide 21 mmol/L (22-29); Chloride 111 mmol/L (98-107); Globulin 2.5 g/dL (1.3-4.6); Glucose 100 mg/dL (65-115); Osmolality Calculated 296 mOsm/kg (285-295); Potassium 3.8 mmol/L (3.5-5.1); Sodium 140 mmol/L (136-145); Total Bilirubin 0.5 mg/dL (0.15-1.2)
[2020-05-15 06:29] LABS: Glucose Point of Care 91 mg/dL (70-110)
--- NOTE | 2020-05-15 07:43 | P.PN_ITS ---
Subjective Subjective: Interval history: Patient denies any abdominal pain, nausea or vomiting or multiple bowel movements overnight Vitals/I&O/Wt Last Vital Signs Temp 99.4 F 05/15/20 04:00 Pulse 68 05/15/20 04:00 Resp 18 05/15/20 04:00 BP 99/52 05/15/20 04:00 Pulse Ox 96 05/15/20 04:00 05/14/20 05/15/20 05/15/20 22:59 06:59 14:59 Intake Total 1050 / 2410 400 / 2410 Output Total 55 / 1205 950 / 1205 Balance 995 / 1205 -550 / 1205 Physical Exam Narrative: EXAM NARRATIVE: Abdomen: Soft, GRAHAM drain output serosanguineous, removed today Data : 05/15/20 05:23 05/15/20 05:23 A&P Assessment and plan (1) Status post laparoscopic cholecystectomy: Overall doing well, had multiple bowel movements a day GRAHAM drain is discontinued, DC home today Status: Acute Attestations Medical Necessity Statement*: Status post laparoscopic cholecystectomy doing well, DC home today Coding Level of Care Code Acute Retail Special Event Associate for [facility] Fwd Diagnoses Status post laparoscopic cholecystectomy Z90.49
--- NOTE | 2020-05-15 07:48 | P.DS_ITS ---
Discharge Providers Date of Admission: 05/11/20 17:42 Date of Discharge: May 15, 2020 Attending Provider at Admission: Donny Vogel MD Attending Provider at Discharge: Donny Vogel MD Primary Care Provider: Elmer Lawson DO Diagnoses at Discharge Discharge Diagnosis (1) Acalculous cholecystitis: Status: Resolved Reason for Visit Reason for Visit: NAUSEA/ VOMITING Hospital Course Hospital Course This is a 80-year-old male who presented to the ER with worsening abdominal pain and nausea on 2 occasions and was diagnosed with acute cholecystitis. Patient underwent laparoscopic cholecystectomy there was areas of gangrene noted on the gallbladder wall and the patient was kept in the hospital for postop IV antibiotics. Over the next 2 days his leukocytosis resolved, he was tolerating a liquid diet and was having bowel movements. At time of discharge his vital signs were stable, his incision was clean dry and intact. His GRAHAM drain output is serosanguineous which was discontinued on the day of discharge. His creatinine had gone up to 1.5 from baseline of 1.2 and patient was resuscitated with IV fluids. Discharge Data Data Completed and Pending: Completed Studies During Hospitalization Category Date Time Status CT abdomen pelvis w con* [id number] Urge nt Cat Scan 05/11/20 14:49 Completed XR KUB portable 7 4018 Stat Exams 05/11/20 14:30 Completed US gall bladder 7 6705 Urgent Ultrasound 05/11/20 16:27 Completed Pending at discharge Category Date Time Status ES surgery / GI i mages Routine Exams 05/12/20 13:30 Taken Pathology: Surgic al [PTH] Routine Pth 05/12/20 16:33 Ordered Labs from last 24 hours 05/15/20 05/15/20 05/15/20 06:18 05:23 05:23 WBC 9.1 RBC 3.46 L Hgb 11.2 L Hct 34.1 L MCV 98.6 H MCH 32.4 MCHC 32.8 RDW 13.1 Plt Count 141 MPV 11.0 H Neut % (Auto) 73.9 Lymph % (Auto) 15.5 [place] % (Auto) 8.8 Eos % (Auto) 0.5 Baso % (Auto) 0.1 Neut # (Auto) 6.73 Lymph # (Auto) 1.4 [place] # (Auto) 0.8 Eos # (Auto) 0.1 Baso # (Auto) 0.0 Nucleated RBC % (a uto) 0 Nucleated RBCs # 0.0 Sodium 140 Potassium 3.8 Chloride 111 H Carbon Dioxide 21 L Anion Gap 11.8 BUN 30 H Creatinine 1.4 H GFR Calculation Not Reportable Glucose 100 POC Glucose 91 Calculated Osmolal ity 296 H Calcium 8.1 L Total Bilirubin 0.5 AST 15 ALT 21 Alkaline Phosphata se 47 Total Protein 5.0 L Albumin 2.5 L Globulin 2.5 05/14/20 20:18 WBC RBC Hgb Hct MCV MCH MCHC RDW Plt Count MPV Neut % (Auto) Lymph % (Auto) [place] % (Auto) Eos % (Auto) Baso % (Auto) Neut # (Auto) Lymph # (Auto) [place] # (Auto) Eos # (Auto) Baso # (Auto) Nucleated RBC % (a uto) Nucleated RBCs # Sodium Potassium Chloride Carbon Dioxide Anion Gap BUN Creatinine GFR Calculation Glucose POC Glucose 108 Calculated Osmolal ity Calcium Total Bilirubin AST ALT Alkaline Phosphata se Total Protein Albumin Globulin Vitals: Last Vital Signs Temp 99.4 F 05/15/20 04:00 Pulse 68 05/15/20 04:00 Resp 18 05/15/20 04:00 BP 99/52 05/15/20 04:00 Pulse Ox 96 05/15/20 04:00 Discharge Plan Discharge Patient Disposition: Home Condition: Stable Prescriptions: New [place] 5-325 mg tablet 1 tab PO Q6H 7 Days Qty: 20 RF: 0 Zofran 4 mg tablet 4 mg PO Q6H PRN (Reason: nausea and vomiting) Qty: 20 RF: 0 Flagyl 500 mg tablet 500 mg PO Q8H 5 Days Qty: 15 RF: 0 Colace 100 mg capsule 100 mg PO BID Qty: 30 RF: 0 levofloxacin 750 mg tablet 750 mg PO DAILY 5 Days RF: 0 Continued multivitamin Tablet 1 tab PO DAILY@1000 RF: 0 lisinopril 20 mg tablet 20 mg PO DAILY@1000 RF: 0 aspirin 81 mg Tablet,Delayed Release (Dr/Ec) 81 mg PO DAILY@1000 RF: 0 simvastatin 20 mg tablet 20 mg PO DAILY@1000 RF: 0 dicyclomine 20 mg tablet 20 mg PO TID PRN (Reason: abdominal pain) Qty: 20 RF: 0 ondansetron HCl 4 mg tablet 4 mg PO Q6H PRN (Reason: nausea/vomiting) RF: 0 Discharge Orders: Discharge Order (Routine); Ordered 05/14/20 Ordered By: Donny Vogel Referrals: Donny Vogel MD [Physician] - 2 weeks (Call the office first thing Friday morning at [phone] to make an appointment for 2 weeks.) Discharge Diet: Advance as tolerated Discharge Activity: Resume usual activity Patient Instructions: Hydrocodone/Acetaminophen (By mouth), Metronidazole (By mouth), Laxative, Stool Softeners (By mouth), Ondansetron (By mouth), Levofloxacin (By mouth) Activity Restrictions/Additional Instructions: 1. Up and walking as tolerated. 2. Ok to shower in 48 hours after surgery. 3. Remove Dermabond dressing in 7-10 days. 4. Do not lift more than 10 pounds. 5. Do not operate heavy machinery or drive while using pain medications. 6. Advised to return to ER or contact my office if there are any signs of infection like, increasing pain, fevers, chills, redness or drainage of pus. 7. Advised to increase intake of liquids by mouth 8. Avoid stool softeners if having multiple loose bowel movements Discharge Attestations Time Spent in Discharge Care*: less than 30 min Quality Metrics Clinical Quality Measures During this hospital stay, did patient experience: None Coding Level of Care Code Acute Medical Coder for g Fwd Diagnoses Acalculous cholecystitis K81.9
[2020-05-15 08:00] VITALS: BP 109/73; PULSE 61; RESP 17; TEMP 36.4; O2SAT 96
[2020-05-15] MEDS: lisinopril 20 mg Tablet PO (09:13)
[2020-05-15] MEDS: sennosides-docusate Tablet 1 TAB PO (09:13)
--- NOTE | 2020-05-15 09:35 | PC.CHAP ---
Pastoral Care Encounter/Spiritual Assessment Type of Contact [] Declined nephrologist visit [] Patient/Family/Request visit [] Outpatient visit [] Follow-up visit [] Physician referral [] Code/Alert [x] Routine visit [] Staff referral [] Actively dying [] Patient sleeping [] Family support [] [] Out of room [] Palliative care [] [] Receiving care in room [] Pre-surgical visit [] Trauma [] Long length of stay [] ICU visit [] Other: Relational/Emotional Strength [x] Patient feels connected with others/family/visitors/staff [] Distress [] Loneliness/isolation [] Abandonment Spirituality of Patient [x] Person of Veronica [x] Attends Amish of their [place] [x] Believes in Prayer [] Reads Bible or Yarsanism materials [] There are Spiritual issues to be addressed Internet Sales Director Interventions [x] Prayer [x] Active listening [] Non-anxious presence [] Spiritual/emotional support [] Crisis/trauma care [] Spiritual counseling [] Bereavement support [] Provided bereavement packet [] Provided Bible/devotional materials [] Provided toy/stuffed animal, coloring book to patient or family member [] Provided Communion [] Anointing/[place] [] Salvation [x] Completed spiritual assessment [] Other: Impact on Illness or Injury [] Angry [] Fearful [] Anxious [] Often cries [] Exhaustion [] Unable to work [] Unable to attend adventist [] Unable to walk/stand [] Unable to read [] Unable to drive [] Unable to eat/drink [] Unable to sleep [] Unable to be with family [] Patient intubated [] Other: Summary patient feeling better Time spent with patient 15 min
[2020-05-15] MEDS: famotidine 20 mg/2 mL INJ IVP (09:53)
[2020-05-15 10:36] LABS: Glucose Point of Care 103 mg/dL (70-110)
[2020-05-15 13:18] VITALS: BP 109/73; PULSE 61; RESP 17; TEMP 36.4; O2SAT 96
== END 2020-05-15 13:15 | disposition home or self-care (01) | DRG 418 ==
LOC: ER 18:29 → MEDSURG 18:53
PROVIDERS: Physician Assistant; Admitting Provider Surgery; Emergency Provider Family Medicine; PCP Electrodiagnostic Medicine; Visit Provider Surgery
PROC: 0FT44ZZ Resection of Gallbladder, Percutaneous Endoscopic Approach (ICD-10-PCS; CPT 47562; principal; 2020-05-12 14:15)
DX: K81.0 Acute cholecystitis (principal); K91.89 Other postprocedural complications and disorders of digestive system; K56.7 Ileus, unspecified; K82.A1 Gangrene of gallbladder in cholecystitis; E78.5 Hyperlipidemia, unspecified; I10 Essential (primary) hypertension; Y83.9 Surgical procedure, unspecified as the cause of abnormal reaction of the patient, or of later complication, without mention of misadventure at the time of the procedure
CPT/HCPCS: 12345; 36415; 36416; 74018; 74177; 76705; 80053; 81001; 81003; 82962; 83605; 83690; 85025; 87426; 88304; 94664; 96374; 96375; 96376; 97110; 97161; 97530; 99283; J1100; J2270; J2405; J2543; J2704; J2710; J3010; J3490; J7030; J7040; Q9967